=== PATIENT | male | born 1980 | race Caucasian/White ===

== ENCOUNTER 2018-07-26 10:37 | Emergency (ER) | payer OTHER ==
[~2018-07-26] VITALS: Ht 182.9 cm; Wt 99.8 kg
[~2018-07-26 10:37] MED LIST: CRUTCH1 EACH; NORCO 5-325 TA1 EACH PO; PERCOCET 5-3251 EACH PO
[2018-07-26] MEDS ORDERED: BACLOFEN10 MG PO (11:16)
[2018-07-26] MEDS ORDERED: NORCO 5-325 TA1 EACH PO (11:16)
[2018-07-26] MEDS ORDERED: METHYLPREDNISOLO4 M1 PO (11:16)
== END 2018-07-26 11:35 | disposition home or self-care (01) ==
LOC: ED 10:37
DX: M54.41 Lumbago with sciatica, right side (principal); F17.200 Nicotine dependence, unspecified, uncomplicated
CPT/HCPCS: 99283

== ENCOUNTER 2021-01-05 19:06 | Emergency (ER) | payer OTHER ==
[~2021-01-05] VITALS: Ht 182.9 cm; Wt 111.1 kg
[~2021-01-05 19:06] MED LIST changes: +BACLOFEN10 MG PO; +METHYLPREDNISOLO4 M1 PO
== END 2021-01-05 20:33 | disposition swing bed (61) ==
LOC: ED 19:06
DX: S60.221A Contusion of right hand, initial encounter (principal); W22.8XXA Striking against or struck by other objects, initial encounter; F17.200 Nicotine dependence, unspecified, uncomplicated
CPT/HCPCS: 73130; 99283-25

== ENCOUNTER 2025-06-17 18:29 | Emergency (ER) | payer BC ==
[~2025-06-17] VITALS: Ht 182.9 cm; Wt 122.0 kg
[2025-06-17] MEDS ORDERED: HYDROCODONE/ACETA 5/325 TAB PO ONE (19:45)
[2025-06-17] MEDS ORDERED: TRAMADOL HCL50 MG PO (20:29)
[2025-06-17] MEDS ORDERED: TRAMADOL HCL 50 MG HOME.PACK PO ONE (20:45)
[2025-06-17 21:00] VITALS: BP 151/85
== END 2025-06-17 21:10 | disposition home or self-care (01) ==
LOC: ED 18:29
DX: S62.034A Nondisplaced fracture of proximal third of navicular [scaphoid] bone of right wrist, initial encounter for closed fracture (principal); F17.200 Nicotine dependence, unspecified, uncomplicated; W50.0XXA Accidental hit or strike by another person, initial encounter
CPT/HCPCS: 29125; 73110; 73130; 73200; 99284; A9270